=== PATIENT | female | born 1965 | race Caucasian/White ===

== ENCOUNTER → 2024-01-04 06:23 | Day surgery (SDC) | payer OTHER, SELFPAY | LOC: GI 06:23 | PROVIDERS: ATTENDING PHYSICIAN Internal Medicine | DX: Z12.11 Encounter for screening for malignant neoplasm of colon (principal); K63.5 Polyp of colon; K57.30 Diverticulosis of large intestine without perforation or abscess without bleeding; K62.89 Other specified diseases of anus and rectum; K62.1 Rectal polyp; Z86.0109 Personal history of other colon polyps; Z83.710 Family history of adenomatous and serrated polyps | CPT/HCPCS: 45385; 88305 ==

== ENCOUNTER → 2024-02-20 11:58 | Outpatient (REF) | payer OTHER, SELFPAY | LOC: WDC 11:58 | PROVIDERS: ATTENDING PHYSICIAN Obstetrics & Gynecology Gynecology; FAMILY PHYSICIAN Nurse Practitioner Primary Care | DX: Z12.31 Encounter for screening mammogram for malignant neoplasm of breast (principal) | CPT/HCPCS: 77063; 77067 ==

== ENCOUNTER → 2024-04-12 07:53 | Outpatient (REF) | payer OTHER, SELFPAY | LOC: HWRAD 07:53 | PROVIDERS: ATTENDING PHYSICIAN Obstetrics & Gynecology; FAMILY PHYSICIAN Nurse Practitioner Primary Care | DX: N95.0 Postmenopausal bleeding (principal) | CPT/HCPCS: 76830; 76856 ==

== ENCOUNTER 2025-02-12 11:21 | Inpatient (IN) | payer OTHER, SELFPAY ==
[2025-02-12] VITALS (15 sets, daily range): BP systolic 79–131; BP diastolic 53–88; BMI 22.8; BMI 22.3
--- NOTE | 2025-02-12 07:40 | ED.GENMED ---
History of Present Illness
<MIKA Arellano - Last Filed: 02/12/25 10:11>
General
Chief Complaint: Back Pain
Source: patient
Exam Limitations: none
Time Seen by Provider: 02/12/25 07:40
Nursing documentation reviewed up to this point in time: agreed with
History of Present Illness
History of Present Illness:
59 yr old female presents to the ER for evaluation. She woke up at 5 AM like normal and noticed she had some difficulty urination. She felt uncomfortable with urination. She reports since then she has had a lot of urgency despite urinating. She
also started with left flank pain and nausea. She denies any fever or chills.
Past History
<MIKA Arellano - Last Filed: 02/12/25 10:11>
Past History
ED Past Medical History: Other (Noncontributory)
ED Past Surgical History: Other (Noncontributory)
Social History
Tobacco: Non-smoker
Personal: Single
Phy Exam
<MIKA Arellano - Last Filed: 02/12/25 10:11>
General Physical Exam
General Presentation: no apparent distress
General age: appears stated age
General Skin: warm and dry
General Habitus: normal
General Mental: alert
General Hydration: appears well hydrated
Gastrointestinal Exam
Gastrointestinal Exam: soft and other (mild suprapubic tenderness )
Neurological Exam
Neurological Exam: alert and oriented x3
Musculoskeletal Exam
Musculoskeletal Exam: full ROM
Skin Exam
Skin Exam: normal color and warm/dry
Psychiatric Exam
Psychiatric Exam: normal mood/affect
Course
<MIKA Arellano - Last Filed: 02/12/25 10:11>
Orders/Labs/Results
Orders:
Orders
02/12/25 Breakfast
NPO
Allow oral meds: No
Allow clear liquids: 4hrs prior to procedure
NPO with Ice Chips: Yes
Comment: may have unrestricted clear liquid up to 4 hrs prior to scheduled procedure
02/12/25 07:41
Bladder Scan- Treatment ONCE
02/12/25 07:49
IV Insert/Care/Rem.- Treatment PRN
0.9% Sodium Chloride 1000 ml [Nss] 1,000 ml IV BOLUS
Ketorolac [Toradol] 15 mg IV NOW STA
02/12/25 07:50
CT Abd/pel Without Iv Or Oral Urgent
Comment:
Reason For Exam: left flank pain
02/12/25 07:56
Ondansetron Injectable [Zofran] 4 mg IV NOW STA
02/12/25 07:58
Complete Blood Count/With Diff Urgent
Comprehensive Metabolic Panel Urgent
UA Reflex to Culture [Urinalysis Reflex To Culture] Urgent
Date Specimen was Collected: 02/12/25
Time Specimen was Collected: 07:48
Urine Microscopic Reflex Cult Urgent
Urine Culture Urgent
HEATHER Source: U
Specimen Description:
Date Specimen was Collected: 02/12/25
Time Specimen was Collected: 07:48
02/12/25 10:22
Anti-embolism (KULWANT) Hose As Directed
Type: Knee high
Sequential Compression Device [Pneumatic Compression Sleeves] As Directed
Type: Knee high
Strain Urine As Directed
02/12/25 10:23
DX Deep Vein Thrombosis Video Routine
02/12/25 17:00
CeFAZolin 2 GRAM [Ancef] 2 grams in 10 ml IV PRE PROCEDURE
Surgical Procedure As Directed
Surgical Procedure: left ureteroscopy
Abnormal Lab Results
02/12/25
07:58
WBC 4.2 L 10^3/uL
(4.8-10.8)
RBC 3.99 L 10^6/uL
(4.20-5.40)
Hct 36.7 L %
(37.0-47.0)
MCH 31.3 H pg
(27.0-31.0)
Sodium 134 L mmol/L
(135-145)
Creatinine 2.6 H mg/dL
(0.6-1.0)
Glucose 123 H mg/dl
(70-99)
Ur Occult Blood Reflex 3+ A
(Negative)
Urine RBC 26-30 A /HPF
(0-2)
Urine Bacteria (Reflex) Moderate A
(Negative)
Urine Albumin (Reflex) 1+ A
(Neg - Trace)
02/12/25 07:58
02/12/25 07:58
Vital Signs
Initial and Last Documented VS:
Initial Vital Signs
Temp Pulse Resp BP Pulse Ox
36.3 C 66 18 120/63 100
02/12/25 07:36 02/12/25 07:36 02/12/25 07:36 02/12/25 07:36 02/12/25 07:36
Last Documented Vital Signs
Temp Pulse Resp BP Pulse Ox
37.0 C 65 20 121/88 100
02/12/25 08:07 02/12/25 08:07 02/12/25 08:07 02/12/25 08:08 02/12/25 08:09
Enrobing Machine Feeder consulted with Physician
Enrobing Machine Feeder consulted with physician?: Yes
Name of Physician Consulted: Klever
<Lexx Ernst MD - Last Filed: 02/12/25 10:36>
Orders/Labs/Results
Orders:
Orders
02/12/25 Breakfast
NPO
Allow oral meds: No
Allow clear liquids: 4hrs prior to procedure
NPO with Ice Chips: Yes
Comment: may have unrestricted clear liquid up to 4 hrs prior to scheduled procedure
02/12/25 07:41
Bladder Scan- Treatment ONCE
02/12/25 07:49
IV Insert/Care/Rem.- Treatment PRN
0.9% Sodium Chloride 1000 ml [Nss] 1,000 ml IV BOLUS
Ketorolac [Toradol] 15 mg IV NOW STA
02/12/25 07:50
CT Abd/pel Without Iv Or Oral Urgent
Comment:
Reason For Exam: left flank pain
02/12/25 07:56
Ondansetron Injectable [Zofran] 4 mg IV NOW STA
02/12/25 07:58
Complete Blood Count/With Diff Urgent
Comprehensive Metabolic Panel Urgent
UA Reflex to Culture [Urinalysis Reflex To Culture] Urgent
Date Specimen was Collected: 02/12/25
Time Specimen was Collected: 07:48
Urine Microscopic Reflex Cult Urgent
Urine Culture Urgent
HEATHER Source: U
Specimen Description:
Date Specimen was Collected: 02/12/25
Time Specimen was Collected: 07:48
02/12/25 10:22
Anti-embolism (KULWANT) Hose As Directed
Type: Knee high
Sequential Compression Device [Pneumatic Compression Sleeves] As Directed
Type: Knee high
Strain Urine As Directed
02/12/25 10:23
DX Deep Vein Thrombosis Video Routine
02/12/25 17:00
CeFAZolin 2 GRAM [Ancef] 2 grams in 10 ml IV PRE PROCEDURE
Surgical Procedure As Directed
Surgical Procedure: left ureteroscopy
Abnormal Lab Results
02/12/25
07:58
WBC 4.2 L 10^3/uL
(4.8-10.8)
RBC 3.99 L 10^6/uL
(4.20-5.40)
Hct 36.7 L %
(37.0-47.0)
MCH 31.3 H pg
(27.0-31.0)
Sodium 134 L mmol/L
(135-145)
Creatinine 2.6 H mg/dL
(0.6-1.0)
Glucose 123 H mg/dl
(70-99)
Ur Occult Blood Reflex 3+ A
(Negative)
Urine RBC 26-30 A /HPF
(0-2)
Urine Bacteria (Reflex) Moderate A
(Negative)
Urine Albumin (Reflex) 1+ A
(Neg - Trace)
02/12/25 07:58
02/12/25 07:58
Vital Signs
Initial and Last Documented VS:
Initial Vital Signs
Temp Pulse Resp BP Pulse Ox
36.3 C 66 18 120/63 100
02/12/25 07:36 02/12/25 07:36 02/12/25 07:36 02/12/25 07:36 02/12/25 07:36
Last Documented Vital Signs
Temp Pulse Resp BP Pulse Ox
37.0 C 65 20 121/88 100
02/12/25 08:07 02/12/25 08:07 02/12/25 08:07 02/12/25 08:08 02/12/25 08:09
<MIKA Arellano - Last Filed: 02/12/25 10:11>
MDM/Problems Addressed
Differential Diagnosis Includes:
Not limited to renal colic, pyelonephritis, UTI
MDM/Problems Addressed:
Patient is a 59-year-old female presents to the ER for evaluation of left flank pain, difficulty urinating. CAT scan performed shows an 8 mm stone at the UVJ with no evidence of infection however patient has an elevated creatinine of 2.6. Case
reviewed with urology with elevated creatinine in light of kidney stone would recommend admission patient will go to the OR today. She denies any fevers and is afebrile white count 4.2. Pt was given fluids/toradol/zofran with significant relief.
<MIKA Arellano - Last Filed: 02/12/25 10:11>
*Radiology
Radiology exam reviewed: radiology read reviewed
*Pulse Oximetry
SaO2: 100
Oxygen Mode of Delivery: Room air
Patient hypoxic: no
*Critical Care Note
Total Time (30-74mins, 75-104mins- exclusive of procedures): Not Applicable
<MIKA Arellano - Last Filed: 02/12/25 10:11>
Patient Management
Discussion with other providers: [employer] (DR Cartwright urology )
ED Attending Note
<MIKA Arellano - Last Filed: 02/12/25 10:11>
-
Portions of this chart may have been created with voice recognition software.� Occasional wrong word or��sound alike� substitutions may have occurred due to the inherent limitations of voice recognition software.
<Lexx Ernst MD - Last Filed: 02/12/25 10:36>
ED Attending Note
Patient seen and examined by attending physician: Yes
ED Attending Note:
I have seen and evaluated the patient with a [id number] encounter. I have spoken to the advance practicer provider and involved in the medical history, the physical exam, medical decision making.
Evaluation and management service: agree unless noted differently below.
Results interpretation: agree unless noted differently below.
Focused HPI: 59-year-old female with history as noted presents to the ER for evaluation of flank pain. Patient reports onset of symptoms around 5:45 AM shortly after she woke up and have been constant since that time. She reports a sharp pain in
the left flank radiates towards the lateral abdomen. Associated with sensation of urinary urgency but no hematuria or dysuria. She denies fever or chills. No vomiting. Denies any trauma. Denies similar symptoms in the past.
Physical exam: Awake and alert not in distress. Vital signs are normal. Abdomen soft and nontender. Mild left CVA tenderness.
Medical Decision Makin-year-old female presents with left flank pain as described above associate with some urinary symptoms. Vitals and exam as above. CBC unremarkable, CMP shows significant renal insufficiency with a creatinine of 2.6 with
no known history of kidney disease. CT showed obstructive stone 8 mm left UVJ with hydronephrosis. Urinalysis positive for blood with moderate bacteria but no pyuria�given stone will cover with antibiotics. Fluid resuscitation. CHARITY FUNDRAISER discussed with
urology, n.p.o. for OR later today. CHARITY FUNDRAISER discussed with hospitalist.
Discharge Plan
Departure
Patient Disposition: Admit
Date of Disposition: 02/12/25
Time of Disposition: 10:07
Admit to: Med/Surg
Admit to doctor: hospitalist
Presentation/result/management discussed w/ accepting MD/DO: Hospitalist
Patient with high blood pressure during this ER visit?: No
Condition: Fair
Covid-19: Not Applicable
Discharge Problem:
Renal colic, Acute kidney insufficiency
Prescriptions:
No Action
No Current Medications
0
Referrals:
Sierra Cueva CRNP [Family Provider, Internal Medicine]
Interventions
Interventions:
*Risk Screen - Suicide Last Done: 02/12/25 07:36
*General Assessment Last Done: 02/12/25 07:36
*Neglect/Abuse Screening Last Done: 02/12/25 07:36
*ED- Fall Risk Assessment Last Done: 02/12/25 08:07
*ED COVID-19 Vaccine History Last Done: 02/12/25 08:07
*ED Influenza Vaccine History Last Done: 02/12/25 08:07
ED-Musculoskeletal Assessment Last Done: 02/12/25 08:07
Discharge Date and Time
Print Language: CANADIAN
[2025-02-12] MEDS: TORADOL 15 MG IV (08:00)
[2025-02-12] MEDS: ZOFRAN 4 MG IV (08:01)
[2025-02-12] MEDS: NSS 1000 IV (08:01)
[2025-02-12 08:07] LABS: Hematocrit 36.7 % (37.0-47.0); Hemoglobin 12.5 g/dL (12.0-16.0); Mean Corp Hgb Conc. 34.1 g/dL (33.0-37.0); Mean Corpuscular Volume 92.0 fL (81.0-99.0); Nucleated Red Blood Cells % 0 %; Platelet Count 232 10^3/uL (130-400); Red Cell Dist. Width 11.9 % (11.5-14.5); Urine Character Clear (Clear)
[2025-02-12 08:29] LABS: ALT (SGPT) 22 U/L (0-35); AST (SGOT) 21 U/L (14-36); Albumin 3.9 g/dl (3.5-5.0); Alkaline Phosphatase 59 U/L (38-126); Blood Urea Nitrogen 13 mg/dl (7-17); Calcium 9.3 mg/dl (8.4-10.2); Carbon Dioxide 26 mmol/L (22-30); Chloride 105 mmol/L (98-107); Glucose 123 mg/dl (70-99); Potassium 4.4 mmol/L (3.5-5.1); Sodium 134 mmol/L (135-145); Total Protein 6.4 g/dl (6.3-8.2)
[2025-02-12 08:58] LABS: Urine Urothelial Cell 0-2 /LPF (FEW)
[2025-02-12 08:59] LABS: Urine Red Blood Cell 26-30 /HPF (0-2)
[2025-02-12 09:18] LABS: Estimated Creatinine Clearance 24 ml/min; eGFR 20.88
--- NOTE | 2025-02-12 10:25 | CONS.URO ---
Consultation
-
Date/Time Consultation Performed: 02/12/2025 1212
Requesting Provider: ED
Performing Provider: Chay
Reason for Consultation: left ureteral stone
Medical History
History of Present Illness
ED note: 'woke up at 5 AM like normal and noticed she had some difficulty urination. She felt uncomfortable with urination. She reports since then she has had a lot of urgency despite urinating. She also started with left flank pain and nausea.
She denies any fever or chills.'
no previous stone hx
Past Medical History
Past Medical History: None
Past Surgical History: None
Allergies/Home Medications
Allergies
Allergy/AdvReac Type Severity Reaction Status Date / Time
No Known Allergies Allergy Verified 02/12/25 07:36
Home Medications
�Medication �Instructions �Recorded �Confirmed �Type
No Meds [No Current Medications] 02/12/25 02/12/25 History
Physical Exam
Vital Signs
Vital Signs
Temp Pulse Resp BP Pulse Ox
98.6 F 65 20 121/88 100
02/12/25 08:07 02/12/25 08:07 02/12/25 08:07 02/12/25 08:08 02/12/25 08:09
Lab / Testing Results
Laboratory Results
02/12/25 07:58
02/12/25 07:58
[place] Exam
[place] [place] [facility]
GI: Soft and Non Tender
Genito-urinary: No Costovertebral Tend
Skin: Warm
Neuro: Awake
Psych: Calm
Assessment / Plan
-
Left Ureteral Stone: 8 mm, distal, obstructing
Azotemia
Plan: will post for OR today; consent signed and brought to OR
Data Reviewed
-
CT Scan: Image personally visualized and interpreted
Lab Data: Labs Reviewed
Old Records: Reviewed
--- NOTE | 2025-02-12 11:10 | HPS.HSE ---
Addendum entered and electronically signed by Prashanth Sanders MD 02/13/25 15:52:
ALLYSSA
- cr 2.6 , no baseline available although patient reported of not having any renal issues in the past
- Likely secondary to kidney stone
- monitor renal function post procedure
Hyponatremia -acutely unknown
- Mild unlikely related to ADH excess from pain
- monitor
Original Note:
Family Physician
-
Family Physician: Sierra Cueva
Chief Complaint
-
Left lower back pain
History of Present Illness
Patient is a 59-year-old female with no past medical history came to ER with new onset of left lower back pain with radiation to groin. Symptoms were sudden onset within last 24-hour and not associated with any hematuria or dysuria. Patient denies
of having any previous history of kidney stones. Denies of having any associated abdominal pain nausea vomiting fever episode. No cardiopulmonary complaints.
Medical History
Past Medical History
Past Medical History: Reports Other
Additional Past Medical History:
Postmenopausal on hormone replacement therapy
Past Surgical History: Reports None
Social History
Tobacco: Non-smoker
Alcohol: None
Drug: None
Living: With Family
Family History
Family History: Not pertinent
Allergies / Home Medications
Allergies reflects when Allergies were last updated in [facility].
Home Medications with original date entered in [facility]
Allergy/Medication List:
Allergies
Allergy/AdvReac Type Severity Reaction Status Date / Time
No Known Allergies Allergy Verified 02/12/25 07:36
Home Medications
Energy Supplement 1 dose PO DAILY Supplement 02/12/25
Focus Supplement 1 dose PO DAILY Supplement 02/12/25
Meat Organ Supplement 1 dose PO DAILY Supplement 02/12/25
Mental Clarify Supplement 1 dose PO DAILY Supplement 02/12/25
Vitamin D A K E 1 dose PO DAILY Supplement 02/12/25
estradiol 0.075 mg/24 hr weekly transdermal patch (Climara) 0.075 mg topical MILLS Hormonal Agent 02/12/25
magnesium 200 mg tablet 200 mg PO HS Supplement 02/12/25
progesterone micronized 200 mg capsule 200 mg PO HS Hormonal Agent 02/12/25
Review of Systems
-
A 12 point ROS was completed and negative except as noted: Yes
Physical Exam
Vital Signs
Vital Signs
Temp Pulse Resp BP Pulse Ox
98.6 F 65 20 121/88 100
02/12/25 08:07 02/12/25 08:07 02/12/25 08:07 02/12/25 08:08 02/12/25 08:09
Physical Exam
General: Well Developed, Well Nourished and No Apparent Distress
HEENT: NormoCephalic, Moist mucous membranes and Atraumatic
Respiratory: Clear
Cardiac: S1/S2 and Regular Rhythm; No Murmur or Rub
GI: Soft, Non Tender, Non Distended and Normal Bowel Sounds; No Organomegaly
Rectal: Deferred by Provider
Musculoskeletal: No Clubbing, No Cyanosis and No Edema
Skin: No Rash
Neuro: Nonfocal/grossly intact
Laboratory Results
-
02/12/25 07:58
02/12/25 07:58
Laboratory Results
Total Bilirubin 0.5 mg/dl (0.2-1.3) 02/12/25 07:58
AST 21 U/L (14-36) 02/12/25 07:58
ALT 22 U/L (0-35) 02/12/25 07:58
Alkaline Phosphatase 59 U/L (38-126) 02/12/25 07:58
Data Reviewed
-
CT Scan: Image Personally Visualized and interpreted and Report Reviewed by me
Impression/Plan
-
CT a/p
There is an 8 mm stone in the region of the left ureterovesicular junction with associated mild left-sided hydronephrosis.
Uterus appears mildly enlarged and globular which is likely secondary to multiple uterine fibroids.
1. Left ureterovesical junction obstructing stone
Left hydronephrosis
- Patient presented with lower left back pain, no associated nausea vomiting dysuria or hematuria
- UA relatively clear
- CT chest abdomen pelvis showed left ureter was psych call junction obstructing stone of 8 mm
- Urology evaluated and patient is planned to be taken to the OR for cystoscopic retrieval
- Maintain n.p.o. on IV fluid
- Oral and IV pain medication ordered
- As needed Zofran if patient develops any nausea or vomiting
- Admit patient to [facility] floor
2. Hemangioma of liver
- Incidental finding on CT abdomen pelvis
3. Postmenopausal
- Continue hormone replacement therapy, ordered progesterone nighttime
Full code
DVT PPX - scd
Total time spent : 77 mins
I personally saw and examined the patient.
I have reviewed all diagnostic interpretations and treatment plans as written.
Time includes patient management by me, time spent at the patients bedside, time to review lab and imaging results, discussing patient care, documentation in the medical record, and time spent with the family or caregiver and discussing care plan
with RN/Consultants.
--- NOTE | 2025-02-12 13:17 | EDRN ---
this RN called the receiving unit and notified them that paper report was going to be tubed up
--- NOTE | 2025-02-12 16:34 | PTCARENOTE ---
Received patient from ER AAOx3. Pt oriented to room. NPO for OR today. Offered no complaints. Made patient comfortable. Cont to assess patient status.
--- NOTE | 2025-02-12 17:21 | PTCARENOTE ---
Report called an patient sent to OR
--- NOTE | 2025-02-12 17:35 | W.SUR.PREOP ---
Pre-Operative Surgical Note
-
I have examined this patient prior to the performance of the scheduled procedure.
The patient's condition is unchanged from the time of the current History and
Physical and the patient is able to undergo the scheduled procedure.
--- NOTE | 2025-02-12 17:36 | W.IMMPOSTOP ---
Surgical Immed Post Op Note
-
Primary Surgeon: Chay
Pre-op Diagnosis: Left Ureteral Stone; Azotemia
Post-op Diagnosis: Left Ureteral Stone; Azotemia
Procedure Performed: Left Ureteroscopy, Stone Fragmentation/Removal, Stenting
Anesthesia Type: LMA
Estimated Blood Loss: negligible
Complications: none
Operative Findings: distal left ureteral stone
4.8 24 cm JJ left ureteral stent placed.
[2025-02-12] MEDS: FLOMAX 0.4 MG PO (20:15)
--- NOTE | 2025-02-12 23:21 | PTCARENOTE ---
Pt arrived from post-operative on bed. Pt AO*3 and cooperative. Pt on room air. Pt denies any pain or discomfort. Pt ambulated to the bathroom stand-by assist. SCDs ON. Will continue to monitor.
[2025-02-13 03:05] VITALS: BP 99/59
[2025-02-13] MEDS: TYLENOL 650 MG PO (05:15)
[2025-02-13 07:23] LABS: Hematocrit 35.2 % (37.0-47.0); Hemoglobin 11.7 g/dL (12.0-16.0); Mean Corp Hgb Conc. 33.2 g/dL (33.0-37.0); Mean Corpuscular Volume 98.6 fL (81.0-99.0); Platelet Count 200 10^3/uL (130-400); Red Cell Dist. Width 11.7 % (11.5-14.5)
[2025-02-13 07:45] LABS: Blood Urea Nitrogen 11 mg/dl (7-17); Calcium 8.6 mg/dl (8.4-10.2); Carbon Dioxide 26 mmol/L (22-30); Chloride 104 mmol/L (98-107); Estimated Creatinine Clearance 70 ml/min; Glucose 81 mg/dl (70-99); Potassium 4.2 mmol/L (3.5-5.1); Sodium 131 mmol/L (135-145); eGFR > 60.00
[2025-02-13 08:13] VITALS: BP 110/63
--- NOTE | 2025-02-13 10:15 | PN.CDI ---
CDI
- -
CDI:
Physician Documentation Request
Admit Date: 02/12/25 11:21
Dear Doctor Tommy,
Please review the following and provide your response in the progress notes.
Clinical Indicators:
Pt admitted with hydronephrosis obstructing stone s/p ureteral stenting/fragmentation
Urology consult, ' Left Ureteral Stone: 8 mm, distal, obstructing Azotemia...'
Renal functions are as below /Pt did get IVFs
Laboratory Tests
02/12/25 02/13/25
07:58 06:50
Creatinine 2.6 H 0.9
Clarify which of the following accurately represents the patient's renal status:
ALLYSSA
Abnormal lab value
Other ( please specify)
Criteria for ALLYSSA*
1 Increase in serum creatinine by > or = to 0.3 mg/dL (> or = to 26.5 micromol/L) within 48 hours, OR
2 Increase in serum creatinine to > or = to 1.5 times baseline, which is known or presumed to have occurred within 7 days, OR
3 Urine volume < 0.5 nL/kg/hour for six hours
Use of terms such as suspected, likely, concern for, or probable (associated with a specific diagnosis that is being evaluated, monitored, or treated as if it exists) are acceptable and can be coded in the inpatient setting, when documented at the
time of discharge.
Thank you,
Nicki Nichols RN
CDI Specialist
[place] [facility]
Please use your independent medical judgment in providing your response.
*Source: Kidney Disease: Improving Global Outcomes (KDIGO) 2012
--- NOTE | 2025-02-13 10:21 | PN.CDI ---
CDI
- -
CDI:
Physician Documentation Request
Admit Date: 02/12/25 11:21
Dear Doctor Tommy,
Please review the following and provide your response in the progress notes.
Clinical Indicators:
Pt admitted with hydronephrosis obstructing stone s/p ureteral stenting/fragmentation
Sodium levels are as below/ Pt did get IVFs
Laboratory Tests
02/12/25 02/13/25
07:58 06:50
Sodium 134 L 131 L
Based on the above, could you clarify in the progress notes, the appropriate diagnosis, if significant, that supports the above abnormalities and additional evaluation, monitoring and/or treatment rendered:
Hyponatremia
Abnormal lab value
Other ( please specify)
Use of terms such as suspected, likely, concern for, or probable (associated with a specific diagnosis that is being evaluated, monitored, or treated as if it exists) are acceptable and can be coded in the inpatient setting, when documented at the
time of discharge.
Thank you,
Nicki Nichols RN
CDI Specialist
[place] [facility]
Please use your independent medical judgment in providing your response.
--- NOTE | 2025-02-13 15:02 | CM ---
Pt discharged to home, no needs. Partner took pt home.
IA completed. Independent with ADLs and IADLs. LIves with partner, son, foster and 2 parents in a 2 story house with 1 step at the entrance. Full BR is on the second floor. There are 13 steps to the 2nd floor. No hx of HH,, DME, home O2 and SNF. NO
insecurities identified., Confirmed PCP, RX, insurance and drug coverage
PCP: Sierra Cueav
Rx: NETO Sandoval
--- NOTE | 2025-02-13 15:52 | W.DCSUMMARY ---
Discharge Summary
Discharge Data
Date of Admission: 02/12/25
Date of Discharge: 02/13/25
-
Pending Results: No
Hospital Course
Discharging Physician : Dr Prashanth Sanders
Disposition : To home
Primary care physician : Dr Sierra Cueva
Principal Discharge diagnosis :
Left ureterovesical junction obstructing stone
left hydronephrosis
Chronic Discharge diagnosis :
Postmenopausal on hormone replacement therapy
Physical examination:
GEN: aox3
Abd: N BS, soft, nontender, nondistended
Neuro: No motor or sensory deficits
Ext: No edema
Hospital Course :
Patient is a 59-year-old female with above-mentioned past medical history came to ER with new onset of left lower back pain with radiation to groin. No associated nausea vomiting hematuria or fever episode reported. In ER patient had a CT abdomen
pelvis which showed 8 mm ureterovesical junction stone with associated mild hydronephrosis. Patient had elevated creatinine suggestive of ongoing renal dysfunction. Urology evaluated patient and was taken to the OR with cystoscopic retrieval of
stone and stent placement. Patient postprocedure he was monitored in medical floor. Renal function normalized. Patient have some minor hyponatremia which likely was related to ADH excess from pain. Post medical stabilization patient was
discharged home. Patient to follow-up with urology in the office in 2 weeks
Important imaging findings :
None
Procedure findings :
None
Discharge Plan
-
Patient Disposition: Home (Routine Discharge)
Discharge Diagnosis/Procedures: Left Ureteral Stone: 8 mm, distal, obstructing; Azotemia
s/p Left Ureteroscopy, Stone Fragmentation/Removal, Stenting
Condition: Fair
Diet: No restrictions
Activity: No restrictions
Driving Restrictions: As prior to admission
Bathing Restrictions: None
Referrals:
Sierra Cueva CRNP [Family Provider, Internal Medicine] - in one week
Axel Cartwright MD [Active, Urology]
Referral Note: call [facility] to schedule 'cystoscopy, stent removal' in 10-14 days
Prescriptions:
New
tamsulosin 0.4 mg capsule
0.4 mg PO DAILY Qty: 14 0RF
Continued
estradiol [Climara] 0.075 mg/24 hr patch weekly
0.075 mg topical MILLS
progesterone micronized 200 mg capsule
200 mg PO HS
magnesium 200 mg Tablet
200 mg PO HS
Energy Supplement
1 dose PO DAILY
Focus Supplement
1 dose PO DAILY
Meat Organ Supplement
1 dose PO DAILY
Mental Clarify Supplement
1 dose PO DAILY
Vitamin D A K E
1 dose PO DAILY
Discharge Orders:
Discharge Patient (As Directed); Ordered 02/13/25
Ordered By: Prashanth Sanders
Discharge Date and Time
Discharge Date/Time: 02/13/25 10:45
Print Language: WOLOF
== END 2025-02-13 10:45 | disposition home or self-care (01) | DRG 660 ==
LOC: 4 EAST ACU 11:21
PROVIDERS: Nurse Practitioner; ADMITTING PHYSICIAN Hospitalist; CONSULT PHYSICIAN Specialist; EMERGENCY PHYSICIAN Emergency Medicine; FAMILY PHYSICIAN Nurse Practitioner Primary Care
PROC: 0T778DZ Dilation of Left Ureter with Intraluminal Device, Via Natural or Artificial Opening Endoscopic (ICD-10-PCS; 2025-02-12)
PROC: 0TC78ZZ Extirpation of Matter from Left Ureter, Via Natural or Artificial Opening Endoscopic (ICD-10-PCS; 2025-02-12)
DX: N13.2 Hydronephrosis with renal and ureteral calculous obstruction (principal); E87.1 Hypo-osmolality and hyponatremia; N17.9 Acute kidney failure, unspecified; D18.03 Hemangioma of intra-abdominal structures
CPT/HCPCS: 51798; 74018; 74176; 76000; 80048; 80053; 81003; 81015; 85025; 85027; 87086; 96361; 96374; 96375; 99285

== ENCOUNTER → 2025-02-21 12:05 | Outpatient (REF) | payer OTHER, SELFPAY | LOC: WDC 12:05 | PROVIDERS: ATTENDING PHYSICIAN Obstetrics & Gynecology Gynecology; FAMILY PHYSICIAN Nurse Practitioner Primary Care | DX: Z12.31 Encounter for screening mammogram for malignant neoplasm of breast (principal) | CPT/HCPCS: 77063; 77067 ==